=== PATIENT | female | born 1965 | race Caucasian/White ===

== ENCOUNTER 2021-06-01 15:29 | Emergency (ER) | payer OTHER ==
[~2021-06-01] VITALS: Ht 162.6 cm; Wt 88.5 kg
[2021-06-01 16:19] VITALS: BP_SYST 129
== END 2021-06-01 19:41 | disposition home or self-care (01) ==
LOC: SED 15:29
DX: T83.091A Other mechanical complication of indwelling urethral catheter, initial encounter (principal); R33.9 Retention of urine, unspecified
CPT/HCPCS: 99284